=== PATIENT | male | born 1965 | race Caucasian/White ===

== ENCOUNTER 2016-02-19 00:57 | Inpatient (IN) | payer BC ==
[~2016-02-19] VITALS: Ht 190.5 cm; Wt 166.2 kg
[2016-02-19] MEDS ORDERED: SODIUM CHLORIDE 0.9% 1,000 ML ONE (03:21)
[2016-02-19] MEDS ORDERED: ONDANSETRON 4 MG VIAL ONE (03:21)
[2016-02-19] MEDS ORDERED: CEFTRIAXONE 1 GM VIAL ONE (03:21)
[2016-02-19] MEDS ORDERED: SODIUM CHLORIDE 0.9% 100 ML IV ONE (03:21)
[2016-02-19] MEDS ORDERED: DILAUDID 1 MG/ML AMP ONE ×2 (03:21→04:29)
[2016-02-19] MEDS ORDERED: MORPHINE 4 MG/ML SYR ONE (03:23)
[2016-02-19] MEDS ORDERED: ED METRONIDAZOLE IV 100 ML IV ONE (04:29)
[2016-02-19] MEDS ORDERED: SALINE FLUSH 10 ML FLUSH PRN (05:10)
[2016-02-19] MEDS: SODIUM CHLORIDE 0.9% FLUSH BAG 500 ML IV SCH (06:00)
[2016-02-19] MEDS ORDERED: DEXTROSE 50% SYRINGE 50 ML IV PRN (06:00)
[2016-02-19] MEDS ORDERED: GLUCAGON 1 MG VIAL IM PRN (06:00)
[2016-02-19 06:33] VITALS: BP_SYST 137; RESP 20; TEMP 98.1
[2016-02-19 06:38] VITALS: Ht 190.5 cm; Wt 166.2 kg
[2016-02-19] MEDS: PROMETHAZINE 25 MG/ML VIAL IV PRN ×3 (06:46→19:26)
[2016-02-19] MEDS: DILAUDID 1 MG/ML AMP IV PRN ×5 (07:31→23:55)
[2016-02-19] MEDS: POTASSIUM CHLORIDE PREMIX 50 ML IV SCH ×2 (07:35→11:31)
[2016-02-19 07:54] VITALS: BP_SYST 123; RESP 20; TEMP 97.8
[2016-02-19] MEDS ORDERED: MISSING DOSE XX ONE ×2 (08:20→09:00)
[2016-02-19] MEDS: SALINE FLUSH 10 ML FLUSH SCH ×2 (09:02→19:28)
[2016-02-19] MEDS: METRONIDAZOLE IV SCH ×2 (09:02→16:22)
[2016-02-19] MEDS: SODIUM CHLORIDE 0.9% IV SCH ×2 (09:02→16:22)
[2016-02-19] MEDS: ENOXAPARIN 40 MG/0.4 ML SYR SUBQ SCH (09:44)
[2016-02-19] MEDS: LEVOFLOXACIN 750 MG/150 ML 150 ML IV SCH (09:45)
[2016-02-19] MEDS ORDERED: KCL CR 20 MEQ TAB PO ONE (11:20)
[2016-02-19 11:48] VITALS: BP_SYST 108; RESP 18; TEMP 97.5
[2016-02-19] MEDS: Carvedilol 6.25 MG TAB PO SCH ×2 (12:27→20:14)
[2016-02-19] MEDS: DESVENLAFAXINE SUCCINATE 50 MG PO SCH (12:34)
[2016-02-19] MEDS: [UNRECOGNIZED DRUG - REMARK] XX SCH ×2 (12:39→19:28)
[2016-02-19 15:51] VITALS: BP_SYST 132; RESP 18; TEMP 98
[2016-02-19] MEDS: K CITRATE PO SCH ×2 (16:22→20:13)
[2016-02-19] MEDS: POLYETHYLENE GLYCOL 17 GM PACKET PO SCH (16:46)
[2016-02-19] MEDS ORDERED: ACETAMINOPHEN 325 MG TAB PO PRN (17:20)
[2016-02-19] MEDS: SODIUM CHLORIDE 0.9% 1,000 ML IV SCH (19:26)
[2016-02-19 19:29] VITALS: BP_SYST 121; RESP 20; TEMP 97.3
[2016-02-19] MEDS: ESCITALOPRAM 10 MG TAB PO SCH (20:13)
[2016-02-19] MEDS: MAG OXIDE 400 MG TAB PO SCH (20:13)
[2016-02-19] MEDS ORDERED: LEVEMIR INSULIN SUBQ SCH (21:00)
[2016-02-19] MEDS ORDERED: GABAPENTIN 300 MG CAP PO SCH (21:00)
[2016-02-19] MEDS ORDERED: Atorvastatin 10 MG TAB PO SCH (21:00)
[2016-02-19 23:00] VITALS: BP_SYST 102; RESP 20; TEMP 97.5
[2016-02-19] MEDS: METRONIDAZOLE 250 MG 500 MG in SODIUM CHLORIDE 0.9% 100 ML IV SCH (23:55)
[2016-02-20 02:54] VITALS: BP_SYST 121; RESP 18; TEMP 98
[2016-02-20] MEDS: SODIUM CHLORIDE 0.9% FLUSH BAG 500 ML IV SCH (05:16)
[2016-02-20] MEDS: PROMETHAZINE 25 MG/ML VIAL IV PRN (05:41)
[2016-02-20] MEDS: SODIUM CHLORIDE 0.9% 1,000 ML IV SCH (05:41)
[2016-02-20] MEDS: DILAUDID 1 MG/ML AMP IV PRN (05:41)
[2016-02-20 07:14] VITALS: BP_SYST 127; RESP 18; TEMP 97.8
[2016-02-20] MEDS: [UNRECOGNIZED DRUG - REMARK] XX SCH (08:00)
[2016-02-20] MEDS: SALINE FLUSH 10 ML FLUSH SCH (08:00)
[2016-02-20] MEDS ORDERED: FOLIC ACID 1 MG TAB PO SCH (09:00)
[2016-02-20] MEDS: DESVENLAFAXINE SUCCINATE 50 MG PO SCH (09:00)
[2016-02-20] MEDS ORDERED: SPIRONOLACTONE 25 MG TAB PO SCH (09:00)
[2016-02-20] MEDS: METRONIDAZOLE 250 MG 500 MG in SODIUM CHLORIDE 0.9% 100 ML IV SCH (09:08)
[2016-02-20] MEDS: LEVOFLOXACIN 750 MG/150 ML 150 ML IV SCH (09:08)
[2016-02-20] MEDS: K CITRATE PO SCH (09:09)
[2016-02-20] MEDS: MAG OXIDE 400 MG TAB PO SCH (09:09)
[2016-02-20] MEDS: ESCITALOPRAM 10 MG TAB PO SCH (09:09)
[2016-02-20] MEDS: POLYETHYLENE GLYCOL 17 GM PACKET PO SCH (09:10)
[2016-02-20] MEDS: Carvedilol 6.25 MG TAB PO SCH (09:10)
[2016-02-20] MEDS: ENOXAPARIN 40 MG/0.4 ML SYR SUBQ SCH (09:11)
[2016-02-20 11:20] VITALS: BP_SYST 131; RESP 16; TEMP 97.7
[2016-02-20 13:22] VITALS: BP_SYST 131; RESP 16; TEMP 97.7
== END 2016-02-20 14:38 | disposition home or self-care (01) | DRG 392 ==
LOC: ENRESERVTM → ENRESERVDT → ER 00:57 → ENPENDDIS 05:08 → EMR 05:08 → PCU 06:29
PROVIDERS: ADMIT Family Medicine; ATTEND Family Medicine
CPT/HCPCS: 36415; 74176; 80048; 80053; 81001; 82947; 83690; 83735; 84132; 85025; 87040; 87088; 96361; 96365; 96366; 96367; 96375; 99239

== ENCOUNTER 2016-03-03 20:56 | Inpatient (IN) | payer BC ==
[~2016-03-03] VITALS: Ht 190.5 cm; Wt 169.6 kg
[2016-03-03] MEDS ORDERED: KETOROLAC 30 MG/ML VIAL ONE (23:37)
[2016-03-03] MEDS ORDERED: ONDANSETRON 4 MG VIAL ONE (23:37)
[2016-03-03] MEDS ORDERED: SODIUM CHLORIDE 0.9% 100 ML IV ONE (23:37)
[2016-03-03] MEDS ORDERED: CEFTRIAXONE 1 GM VIAL ONE (23:37)
[2016-03-04] MEDS ORDERED: DILAUDID 1 MG/ML AMP ONE (00:51)
[2016-03-04] MEDS ORDERED: MAG HYDROX 30 ML UDC PO PRN (01:40)
[2016-03-04] MEDS ORDERED: BISACODYL 10 MG SUPP RECTAL PRN (01:40)
[2016-03-04] MEDS ORDERED: BISACODYL EC 5 MG TAB PO PRN (01:40)
[2016-03-04] MEDS ORDERED: SALINE FLUSH 10 ML FLUSH PRN (01:40)
[2016-03-04] MEDS ORDERED: SODIUM CHLORIDE 0.9% 1,000 ML IV SCH (01:40)
[2016-03-04] MEDS ORDERED: ALU/MAG/SIM 30 ML UDC PO PRN (01:40)
[2016-03-04] MEDS ORDERED: PHARMACY TO DOSE VANCOMYCIN IV SCH (03:00)
[2016-03-04] MEDS ORDERED: VANCOMYCIN 2,500 MG in SODIUM CHLORIDE 0.9% 500 ML IV ONE (03:15)
[2016-03-04] MEDS ORDERED: MISSING DOSE XX ONE ×3 (04:15→11:25)
[2016-03-04 04:29] VITALS: BP_SYST 152; BP_SYST 158; RESP 18; TEMP 98.7
[2016-03-04 04:39] VITALS: Ht 190.5 cm; Wt 169.6 kg
[2016-03-04] MEDS: SODIUM CHLORIDE 0.9% FLUSH BAG 500 ML IV SCH (05:10)
[2016-03-04] MEDS: DILAUDID 1 MG/ML AMP IV PRN ×4 (06:18→17:50)
[2016-03-04] MEDS: ONDANSETRON 4 MG VIAL IV PUSH PRN ×3 (06:25→18:50)
[2016-03-04] MEDS: PIPERACIL/TAZO 3.375GM/50ML 50 ML IV SCH ×3 (07:32→16:58)
[2016-03-04] MEDS: SALINE FLUSH 10 ML FLUSH SCH ×2 (07:33→20:28)
[2016-03-04] MEDS: FAMOTIDINE 20 MG INJ IV SCH ×2 (07:33→20:28)
[2016-03-04 07:47] VITALS: BP_SYST 139; RESP 20; TEMP 98.1
[2016-03-04] MEDS ORDERED: ENOXAPARIN 40 MG/0.4 ML SYR SUBQ SCH (09:00)
[2016-03-04] MEDS ORDERED: LIDOCAINE 2% SYR 5 ML IV ONE (10:09)
[2016-03-04] MEDS ORDERED: PROPOFOL 50ML PER ML IV ONE (10:09)
[2016-03-04] MEDS ORDERED: KETAMINE INJ 50 MG/ML VIAL IV ONE (10:09)
[2016-03-04 11:28] VITALS: BP_SYST 142; RESP 16; TEMP 98.2
[2016-03-04] MEDS ORDERED: GLUCAGON 1 MG VIAL IM PRN (12:40)
[2016-03-04] MEDS ORDERED: DEXTROSE 50% SYRINGE 50 ML IV PRN (12:40)
[2016-03-04] MEDS ORDERED: VANCOMYCIN 1,750 MG in SODIUM CHLORIDE 0.9% 500 ML IV SCH (13:00)
[2016-03-04] MEDS: ACETAMINOPHEN 325 MG TAB PO PRN (13:17)
[2016-03-04 15:11] VITALS: BP_SYST 154; RESP 18; TEMP 98.6
[2016-03-04] MEDS: HYDROXYCHLOROQUINE 200 MG PO SCH (16:58)
[2016-03-04] MEDS: METOLAZONE 5 MG TAB PO SCH (16:58)
[2016-03-04] MEDS: GABAPENTIN 300 MG CAP PO SCH (17:50)
[2016-03-04] MEDS: ESCITALOPRAM 10 MG TAB PO SCH (18:21)
[2016-03-04 19:44] VITALS: BP_SYST 147; RESP 18; TEMP 97.7
[2016-03-04] MEDS: ZOLPIDEM 5 MG TAB PO SCH (20:29)
[2016-03-04] MEDS: Atorvastatin 10 MG TAB PO SCH (20:29)
[2016-03-04] MEDS: LEVEMIR INSULIN SUBQ SCH (20:30)
[2016-03-04] MEDS ORDERED: ESCITALOPRAM 10 MG TAB PO SCH (21:00)
[2016-03-04] MEDS ORDERED: Carvedilol 6.25 MG TAB PO SCH (21:00)
[2016-03-04 23:45] VITALS: BP_SYST 161; RESP 18; TEMP 98.4
[2016-03-05] VITALS (8 sets, daily range): BP systolic 141–161; RESP 16–21; TEMP 97.4–98.2
[2016-03-05] MEDS: DILAUDID 1 MG/ML AMP IV PRN ×5 (00:25→21:21)
[2016-03-05] MEDS: PIPERACIL/TAZO 3.375GM/50ML 50 ML IV SCH ×4 (00:25→18:22)
[2016-03-05] MEDS: ACETAMINOPHEN 325 MG TAB PO PRN ×3 (02:30→23:12)
[2016-03-05] MEDS: SODIUM CHLORIDE 0.9% FLUSH BAG 500 ML IV SCH (05:26)
[2016-03-05] MEDS: SALINE FLUSH 10 ML FLUSH SCH ×2 (08:00→21:19)
[2016-03-05] MEDS: ONDANSETRON 4 MG VIAL IV PUSH PRN ×3 (08:11→21:21)
[2016-03-05] MEDS: ESCITALOPRAM 10 MG TAB PO SCH (09:00)
[2016-03-05] MEDS: METOLAZONE 5 MG TAB PO SCH (09:00)
[2016-03-05] MEDS: DESVENLAFAXINE SUCCINATE 50 MG PO SCH (09:00)
[2016-03-05] MEDS: HYDROXYCHLOROQUINE 200 MG PO SCH (09:00)
[2016-03-05] MEDS: FAMOTIDINE 20 MG INJ IV SCH ×2 (09:07→21:19)
[2016-03-05] MEDS: [UNRECOGNIZED DRUG - REMARK] XX SCH ×2 (09:44→20:00)
[2016-03-05] MEDS ORDERED: LIDOCAINE 1% BUFFERED 1 ML SYR INTRADERM PRN ×2 (15:00)
[2016-03-05] MEDS ORDERED: GLYCOPYRROLATE 0.2 MG/ML VIAL IV ONE ×2 (15:00)
[2016-03-05] MEDS ORDERED: MIDAZOLAM 2 MG/2 ML INJ IV ONE ×2 (15:00)
[2016-03-05] MEDS ORDERED: LACT RINGERS 1,000 ML IV SCH ×2 (15:00)
[2016-03-05] MEDS: ZOLPIDEM 5 MG TAB PO SCH (21:00)
[2016-03-05] MEDS: GABAPENTIN 300 MG CAP PO SCH (21:19)
[2016-03-05] MEDS: Atorvastatin 10 MG TAB PO SCH (21:19)
[2016-03-05] MEDS: LEVEMIR INSULIN SUBQ SCH (21:20)
[2016-03-06] VITALS (35 sets, daily range): BP systolic 114–238; RESP 11–24; TEMP 96–98.2
[2016-03-06] MEDS: DILAUDID 1 MG/ML AMP IV PRN ×6 (01:24→20:57)
[2016-03-06] MEDS: SODIUM CHLORIDE 0.9% FLUSH BAG 500 ML IV SCH (05:12)
[2016-03-06] MEDS: SALINE FLUSH 10 ML FLUSH SCH ×2 (07:05→20:00)
[2016-03-06] MEDS: ONDANSETRON 4 MG VIAL IV PUSH PRN ×2 (07:11→16:11)
[2016-03-06] MEDS: FAMOTIDINE 20 MG INJ IV SCH ×2 (07:57→20:19)
[2016-03-06] MEDS: [UNRECOGNIZED DRUG - REMARK] XX SCH ×2 (08:00→20:00)
[2016-03-06] MEDS: HYDROXYCHLOROQUINE 200 MG PO SCH (09:00)
[2016-03-06] MEDS: ENOXAPARIN 40 MG/0.4 ML SYR SUBQ SCH (09:00)
[2016-03-06] MEDS: METOLAZONE 5 MG TAB PO SCH (09:00)
[2016-03-06] MEDS: ESCITALOPRAM 10 MG TAB PO SCH (09:00)
[2016-03-06] MEDS: DESVENLAFAXINE SUCCINATE 50 MG PO SCH (09:00)
[2016-03-06] MEDS ORDERED: MIDAZOLAM 2 MG/2 ML INJ ONE (13:29)
[2016-03-06] MEDS ORDERED: OXYCODONE 5 MG TAB PO PRN (14:15)
[2016-03-06] MEDS ORDERED: DILAUDID 1 MG/ML AMP IV PRN (14:15)
[2016-03-06] MEDS ORDERED: MORPHINE 2 MG/ML SYR IV PRN (14:15)
[2016-03-06] MEDS ORDERED: ONDANSETRON 4 MG VIAL IV PRN (14:15)
[2016-03-06] MEDS ORDERED: MORPHINE 4 MG/ML SYR IV PRN (14:15)
[2016-03-06] MEDS ORDERED: MEPERIDINE 25 MG/ML IV PRN (14:15)
[2016-03-06] MEDS: Furosemide 40 MG TAB PO SCH (17:56)
[2016-03-06] MEDS: ACETAMINOPHEN 325 MG TAB PO PRN (19:56)
[2016-03-06] MEDS: Atorvastatin 10 MG TAB PO SCH (20:18)
[2016-03-06] MEDS: GABAPENTIN 300 MG CAP PO SCH (20:19)
[2016-03-06] MEDS: ZOLPIDEM 5 MG TAB PO SCH (20:55)
[2016-03-06] MEDS: LEVEMIR INSULIN SUBQ SCH (21:15)
[2016-03-07] VITALS (16 sets, daily range): BP systolic 134–149; RESP 11–21; TEMP 96.9–98.5
[2016-03-07] MEDS: DILAUDID 1 MG/ML AMP IV PRN ×4 (00:08→12:47)
[2016-03-07] MEDS: ACETAMINOPHEN 325 MG TAB PO PRN ×2 (01:09→05:31)
[2016-03-07] MEDS: ONDANSETRON 4 MG VIAL IV PUSH PRN ×3 (01:42→12:49)
[2016-03-07] MEDS: SODIUM CHLORIDE 0.9% FLUSH BAG 500 ML IV SCH ×2 (04:12→06:36)
[2016-03-07] MEDS ORDERED: KCL CR 20 MEQ TAB PO ONE (06:00)
[2016-03-07] MEDS: MAGNESIUM SULF 1 GM/100 ML 100 ML IV SCH ×2 (06:35→07:58)
[2016-03-07] MEDS: FAMOTIDINE 20 MG INJ IV SCH (07:58)
[2016-03-07] MEDS: ESCITALOPRAM 10 MG TAB PO SCH (08:40)
[2016-03-07] MEDS: Furosemide 40 MG TAB PO SCH (08:40)
[2016-03-07] MEDS: HYDROXYCHLOROQUINE 200 MG PO SCH (08:41)
[2016-03-07] MEDS ORDERED: SPIRONOLACTONE 25 MG TAB PO SCH (09:00)
[2016-03-07] MEDS ORDERED: Hydrocodone/APAP 10/325 MG TAB PO PRN (09:05)
[2016-03-07] MEDS: ENOXAPARIN 40 MG/0.4 ML SYR SUBQ SCH (10:41)
[2016-03-07] MEDS: SALINE FLUSH 10 ML FLUSH SCH (12:47)
== END 2016-03-07 13:00 | disposition short-term general hospital (02) | DRG 694 ==
LOC: ENRESERVDT → ENRESERVTM → ER 20:56 → EMR 03-04 01:37 → ENPENDDIS 03-04 01:37 → 5THW 03-04 03:40 → CCU 03-06 15:53
PROVIDERS: ADMIT Internal Medicine; ATTEND Internal Medicine
PROC: 0T778DZ Dilation of Left Ureter with Intraluminal Device, Via Natural or Artificial Opening Endoscopic (ICD-10-PCS; principal; 2016-03-06 14:15)
DX: N13.2 Hydronephrosis with renal and ureteral calculous obstruction (principal); I44.1 Atrioventricular block, second degree; I50.22 Chronic systolic (congestive) heart failure; I42.0 Dilated cardiomyopathy; E11.9 Type 2 diabetes mellitus without complications; D86.9 Sarcoidosis, unspecified; I25.10 Atherosclerotic heart disease of native coronary artery without angina pectoris; F41.9 Anxiety disorder, unspecified; Z79.4 Long term (current) use of insulin
CPT/HCPCS: 36415; 71010; 71020; 74176; 74420; 80048; 80053; 80202; 81001; 82553; 82947; 83735; 83880; 84100; 84443; 84484; 85025; 87040; 87088; 93005; 96365; 96375; 96376; 99223; 99233; 99239

== ENCOUNTER 2016-03-14 10:01 | Emergency (ER) | payer BC | END 2016-03-14 13:55 | disposition home or self-care (01) | LOC: ER 10:01 | DX: J20.9 Acute bronchitis, unspecified (principal); Z79.899 Other long term (current) drug therapy; Z79.84 Long term (current) use of oral hypoglycemic drugs | CPT/HCPCS: 36415; 71010; 80053; 81001; 83605; 83880; 85025; 87088; 87804 ==